=== PATIENT | female | born 1940 | race Caucasian/White ===

== ENCOUNTER 2018-01-08 11:21 | Outpatient (CLI) ==
--- NOTE | 2018-01-08 12:30 | DI ---
EXAM: LEFT SHOULDER HISTORY: Shoulder pain FINDINGS: Left shoulder three-view. The general bone density appears normal. Glenohumeral joint is within normal limits. There is mild AC joint osteoarthritis. There is mild elevation of the distal clavicle relative to the acromion process although similar in degree to that seen on 06/15/2009 chest radiography. IMPRESSION: Mild acromioclavicular joint osteoarthritis. Subtle AC joint separation may be present. Findings appear stable since 2010.
== END 2018-01-08 11:22 | disposition home or self-care (01) ==
LOC: RAD 11:21
PROVIDERS: ATTEND Family Medicine
DX: M25.512 Pain in left shoulder (principal)

== ENCOUNTER 2018-01-31 09:00 | Outpatient (RCR) ==
--- NOTE | 2018-01-29 11:19 | RS.OPPTEV2 ---
Date of Note: 01/28/18 Visit #: 1 Date of Evaluation: 01/28/18 Payer Source: MEDICARE Surgery Performed?: No Treatment Diagnosis: neck pain, OA of spine History of Condition/Mechanism of Injury:: pt reports has had cervical pain since 01/07/18. pt was caring for at home, just recently was placed in skilled nursing. pt reports she was having to lift as well as pusing w/c up ramp. Prior Level of Function.....Patient was independent with: ADL's, Self Care, Caregiving, Ambulation/Mobility, Community Integration/Access Functional Limitations: Sleep, Self Care, Pushing, Pulling, Lifting, Carrying, Community Access/Integration Current Subjective/complaints:: pt reports she is currently having no pain in cervical spine. States she has occasional numbness and tingling in B hands. L worse than R. Treatment Side (optional): N/A *Precautions: n/a Medical History Medical History: Hypertension, Diabetes, Arthritis Medical History Comments:: anxiety, depression, hyperlipidemia, Chronic kidney disease, osteopenia Surgical History: Lumbar Spine, Hysterectomy Smoking Status: Former smoker Hx Home Medications: aspirin, enalapril, fluoxetine, furosemide, glipizide, Patient's Goals: no further pain Pain Assessment - Pain Description Pain Location: cervical pain Current Pain Intensity: 0 Other Comments regarding Pain:: pt currently without pain, just "feels tight" Functional Outcome Measure Neck Disability Index: 4 (8%) - G Codes & Severity Modifier G Codes & Modifier: carrying moving and handling current CI. carrying moving and handling goal CH Source of G Code score: neck disability index Observation - Observation Inspection: muscle tightness B upper trap R worse that L. Posture: Forward Head, Rounded Shoulders, Decreased Lumbar Lordosis, Decreased Cervical Lordosis Handedness: Right Gait - Gait Pattern General Gait Pattern Observation: No Deviations/Normal General Range of Motion: BUE and BLE WFL's Muscle Strength: BUE 4+/5. BLE 5/5 - ROM Cervical Spine Range of Motion Limitations: Soft Tissue Tightness, Muscle Weakness Comments: cervical ROM WFL's with slight discomfort with lat side bending - Strength Cervical Extension: 3+ Fair+ Cervical Flexion: 3+ Fair+ Cervical Lateral Flexion: 3 Fair Trunk Extension: 3 Fair - Special Tests Foraminal Distraction: Negative (pt reports that cervical distraction felt good , like it was stretching muscles.) Foraminal Compression: Negative Left, Negative Right Palpation Palpation Findings: Tenderness, Trigger Point, Muscle Guarding Comments:: trigger points noted in B upper traps R worse than L. Sensation - Sensation Right Upper Extremity: Impaired Left Upper Extremity: Impaired Right Lower Extremity: Intact/Normal Left Lower Extremity: Intact/Normal Comments: pt reports occasional n/t B hands. Balance - Sitting Balance Static Sitting Balance: Normal Dynamic Sitting Balance: Normal - Standing Balance Static Standing Balance: Normal Dynamic Standing Balance: Normal - Heat/Cryotherapy Treatment: Hot Pack Comments:: cervical spine Interventions - Exercise/Activities/Manual Therapy Exercises/Activities: pt performed cervical retraction, gentle upper trap stretch B, corner stretch, scapular retraction x 5 reps each. Manual Therapy: NA HOME EXERCISE PROGRAM: pt given written HEP including scapular retaction, cervical retraction, corner stretch, upper trap stretch - Charges Timed Code Treatment Minutes: 51 Total Treatment Time: 62 Procedures billed for this date of service:: eval med, HP EVALUATION COMPLEXITY LEVEL EVALUATION COMPLEXITY LEVEL: HISTORY: Medium (HTN, DM, OA, ), EXAM OF BODY SYSTEMS: Medium (strength, muscle tightness, trigger points), CLINICAL PRESENTATION: Medium, CLINICAL DECISION MAKING: Medium Assessment Assessment: pt presents with muscle tightness in B Upper trap and levator, also with trigger points noted in B upper traps R worse than L. pt with occasional n/ t B hands. Patient Education: Home Exercise Program, Education of Plan of Care Short Term Goals Goal #1: pt independent with initial HEP Goal to be met by: 02/11/18 Goal #2: pt with decreased muscle tightness R upper trap equal to L Goal to be met by: 02/11/18 Goal #3: pt with no reports of pain in cervical spine Goal to be met by: 02/11/18 Goal #4: pt with decreased radicular symptoms in UEs Goal to be met by: 02/11/18 Detention Goals Goal #1: pt with normal upper trap and levator flexibility Goal to be met by: 02/18/18 Goal #2: pt with no reports of pain with activity in cervical spine Goal to be met by: 02/18/18 Goal #3: 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 Plan - Treatment to be Provided Procedures: Therapeutic Exercises, Manual Therapy, Massage, Patient Education Modalities: Electrical Stimulation, Ultrasound/Phonophoresis, Cryotherapy, Hot Packs, Mechanical Traction - Treatment Plan Frequency: 2 X week Duration: 3 weeks ORDER # VISITS AND/OR THROUGH DATE: 02/18/18 - Treatment Code (1) Cervical pain Code(s): M54.2 - CERVICALGIA (2) Muscle tightness Code(s): M62.89 - OTHER SPECIFIED DISORDERS OF MUSCLE
--- NOTE | 2018-01-31 10:13 | RS.OPPTDN ---
Subjective Date of Note: 01/31/18 Visit #: 2 Date of Evaluation: 01/28/18 Payer Source: MEDICARE ( is secondary) Treatment Diagnosis: neck pain, OA of spine Current Subjective/complaints:: pt states she continues with no neck pain. pt reports she has been doing HEP. States having trouble finding a corner in her home to do corner stretch. (demonstrated way to stretch in smaller doorway). pt also reports that when pushing in w/c at ns home she tried to stay closer to chair and improve posture to decrease strain on neck. *Precautions: n/a Pain Assessment - Pain Description Other Comments regarding Pain:: no reports of pain, only tightness - Treatment Modality: Ultrasound Parameters/Method Applied: 1.5w/cm2 continuous x 7mins Treatment Area: L upper trap Patient Position: Sitting - Heat/Cryotherapy Treatment: Hot Pack Comments:: cervical spine Interventions - Exercise/Activities/Manual Therapy Exercises/Activities: pt performed cervical retraction, gentle upper trap stretch and levator stretch bilaterally, corner stretch, scapular retraction 2 sets of 10 with green tband. Manual cervical traction, trigger point release Total minutes of Exercise: 28 Manual Therapy: NA HOME EXERCISE PROGRAM: pt given written HEP including scapular retaction, cervical retraction, corner stretch, upper trap stretch - Objective Findings Observations,measurements,etc.: pt L upper trap with increased tightness and trigger point > R. - Charges Timed Code Treatment Minutes: 41 Total Treatment Time: 58 Procedures billed for this date of service:: exercise 2, ultrasound, hot pack Assessment: pt presents with decreased muscle tightness and no reports of pain. pt with continued tightness in B upper trap. Modified HEP and added scapular retraction with green theraband. Patient Education: Home Exercise Program, Education of Plan of Care Patient demonstrates compliance with HEP?: Yes Short Term Goals Goal #1: pt independent with initial HEP Goal to be met by: 02/11/18 Progress towards Goal:: Progressing Goal #2: pt with decreased muscle tightness R upper trap equal to L Goal to be met by: 02/11/18 Progress towards Goal:: Progressing Goal #3: pt with no reports of pain in cervical spine Goal to be met by: 02/11/18 Progress towards Goal:: Met Goal #4: pt with decreased radicular symptoms in UEs Goal to be met by: 02/11/18 Progress towards Goal:: Met Longterm Goals Goal #1: pt with normal upper trap and levator flexibility Goal to be met by: 02/18/18 Progress towards goal: Progressing Goal #2: pt with no reports of pain with activity in cervical spine Goal to be met by: 02/18/18 Progress towards goal: Progressing Goal #3: 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 Plan PLAN OF CARE EXPIRES ON:: 02/18/18 ORDER # VISITS AND/OR THROUGH DATE: 02/18/18 PLAN: Plan to dc next visit if no increased symptoms and pt independent with HEP.
== END 2018-01-31 23:59 | disposition short-term general hospital (02) ==
PROVIDERS: ATTEND Family Medicine
DX: M54.2 Cervicalgia (principal); M47.9 Spondylosis, unspecified; M62.89 Other specified disorders of muscle

== ENCOUNTER 2018-02-04 09:59 | Outpatient (RCR) | payer OTHER ==
--- NOTE | 2018-02-04 10:21 | RS.OPPTDN ---
Subjective Date of Note: 02/04/18 Visit #: 3 Date of Evaluation: 01/28/18 Payer Source: MEDICARE ( is secondary) Treatment Diagnosis: neck pain, OA of spine Current Subjective/complaints:: pt states she took her out of group home on Saturday and out to lunch and to their house and is hurting today. *Precautions: n/a Pain Assessment - Pain Description Pain Location: L medial scapula Pain Description: Sharp, Aching Current Pain Intensity: 6 Worst Pain Intensity: 8 - Treatment Modality: Ultrasound Parameters/Method Applied: 1.5w/cm2 x 8 mins continuous Treatment Area: L medial border of scapula Patient Position: Sitting - Heat/Cryotherapy Treatment: Hot Pack Comments:: L scapula Interventions - Exercise/Activities/Manual Therapy Exercises/Activities: pt performed cervical retraction, upper trap and levator scapula stretch. pt also performed corner stretch, wall angels, scapular retraction with elbows flexed and elbows extended 2 sets of 10 reps pt requires verbal and tactile cues to direct ex. Total minutes of Exercise: 21 Manual Therapy: pt received trigger point release as well as massage to L medial scapula and B upper traps. Total minutes of Manual Therapy: 17 HOME EXERCISE PROGRAM: pt given written HEP including scapular retaction, cervical retraction, corner stretch, upper trap stretch - Charges Timed Code Treatment Minutes: 46 Total Treatment Time: 61 Procedures billed for this date of service:: ex, manual tx, ultrasound, HP Assessment: pt with increased pain this visit due to lifting, pulling on over the weekend. Discussed proper body mechanics with patient to avoid further injury as well as letting her children assist when home and staff assist while at group home. pt verbalizes understanding Patient Education: Home Exercise Program, Activity Modification, Education of Plan of Care Patient demonstrates compliance with HEP?: Yes Short Term Goals Goal #1: pt independent with initial HEP Goal to be met by: 02/11/18 Progress towards Goal:: Progressing Goal #2: pt with decreased muscle tightness R upper trap equal to L Goal to be met by: 02/11/18 Progress towards Goal:: Met Goal #3: pt with no reports of pain in cervical spine Goal to be met by: 02/11/18 Progress towards Goal:: Met Goal #4: pt with decreased radicular symptoms in UEs Goal to be met by: 02/11/18 Progress towards Goal:: Met [employer] Goals Goal #1: pt with normal upper trap and levator flexibility Goal to be met by: 02/18/18 Progress towards goal: Progressing Goal #2: pt with no reports of pain with activity in cervical spine Goal to be met by: 02/18/18 Progress towards goal: Progressing Goal #3: 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 Plan PLAN OF CARE EXPIRES ON:: 02/18/18 ORDER # VISITS AND/OR THROUGH DATE: 02/18/18 PLAN: continue to focus on strengthening, stretching as well as modalities for pain control.
--- NOTE | 2018-02-12 13:41 | RS.OPPTDC ---
Date of Discharge: 02/04/18 Date of Evaluation: 01/28/18 Number of Visits: 3 Treatment Diagnosis: neck pain, OA of spine Current Level of Function: pt with increased pain this visit 11/10. Reports happened after taking out of intermediate for visit. pt with ROM WFL's, trigger points noted in upper traps, and medial border of scapula. Current Complaints/Gains: pt reports increased pain related to caring for . pt continues to perform home exercises. She feels she is ready for DC because she only has pain when trying to pull and lift . Discussed safety and body mechanics and pt verbalized understanding. Pain Assessment - Pain Description Pain Location: medial scapula and upper trap Pain Description: Aching Current Pain Intensity: 6 Functional Outcome Measure Neck Disability Index: 4 - G Codes & Severity Modifier G Codes & Modifier: carrying moving and handling dc CI. carrying moving and handling goal CH Source of G Code score: neck disability index Observation - Observation Posture: Forward Head, Rounded Shoulders, Increased Thoracic Kyphosis Handedness: Right Gait - Gait Pattern General Gait Pattern Observation: No Deviations/Normal General Range of Motion: WFL's BUE and BLE Muscle Strength: BUE and LE WFL's Interventions - Exercise/Activities/Manual Therapy Exercises/Activities: n/a Manual Therapy: n/a HOME EXERCISE PROGRAM: pt given written HEP including scapular retaction, cervical retraction, corner stretch, upper trap stretch - Charges Timed Code Treatment Minutes: n/a Total Treatment Time: n/a Procedures billed for this date of service:: n/a Assessment Assessment: pt has met all STG's and progressing toward LTG's. pt has had increased in pain for last visit due to caring for . Patient Education: Home Exercise Program, Education of Plan of Care Rehab Potential: Good Short Term Goals Goal #1: pt independent with initial HEP Goal to be met by: 02/11/18 Progress towards Goal:: Met Goal #2: pt with decreased muscle tightness R upper trap equal to L Goal to be met by: 02/11/18 Progress towards Goal:: Met Goal #3: pt with no reports of pain in cervical spine Goal to be met by: 02/11/18 Progress towards Goal:: Met Goal #4: pt with decreased radicular symptoms in UEs Goal to be met by: 02/11/18 Progress towards Goal:: Met [employer] Goals Goal #1: pt with normal upper trap and levator flexibility Goal to be met by: 02/18/18 Progress towards goal: Progressing Goal #2: pt with no reports of pain with activity in cervical spine Goal to be met by: 02/18/18 Progress towards goal: Progressing Goal #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 Plan Reason for Discharge:: pt request
== END 2018-03-02 23:59 ==
PROVIDERS: ATTEND Family Medicine
DX: M54.2 Cervicalgia (principal); M47.9 Spondylosis, unspecified

== ENCOUNTER 2018-03-25 17:25 | Outpatient (CLI) | payer OTHER ==
--- NOTE | 2018-03-26 07:58 | DI ---
EXAM: Chest two views HISTORY: Cough COMPARISON: 08/03/2012 TECHNIQUE: Two views of the chest were performed FINDINGS: Mild left basilar atelectasis and/or infiltrate. There is no pleural effusion or pneumoth orax. The heart is normal in size. The mediastinal contour is normal. There are no acute abnormali ties of the bones. IMPRESSION: Mild left basilar atelectasis and/or pneumonia.
== END 2018-03-25 17:26 | disposition home or self-care (01) ==
LOC: RAD 17:25
PROVIDERS: ATTEND Family Medicine
DX: R05 Cough (principal); J32.9 Chronic sinusitis, unspecified

== ENCOUNTER 2018-10-21 11:24 | Emergency (ER) | payer OTHER ==
[2018-10-21 11:51] VITALS: BMI 25.8
--- NOTE | 2018-10-21 12:07 | ED.PDOC ---
General ED Provider: Dr. JOSEPH WANG Chief Complaint: Fall Stated Complaint: Fell last evening and sustained low back and hip injury. Pain and discomfort in low back and rt posterior rib cage. Patient states she was trying to get into bed. Last evening patient felt weak and confused, She lost her balance and fell away from bed. Patient felll agaist frame and fell but sas able to get herself up. Complains of low back and rib pain which started last night after the fall and pt had a hard time sleeping. describes pain as a sore feeling. pt is confused and unsure if or when she had eaten over the past few days. pt became confused since the fall. Cough- Son states she has been under care of ENT specialist for a chronic cough but has not cleared up . States has persistent cough since last March but imaging has been negative. Son states she has complained of weakness and seems confused, at times not being able to speak the words she is thinking and wants to use. No prev stroke Time Seen by Physician: 11:50 Mode of Arrival: Walk-In Information Source: Patient Exam Limitations: No limitations Primary Care Provider: KASH ARCOS Nursing and Triage Documentation Reviewed and Agree: Yes Does patient meet sepsis criteria?: No If yes, has appropriate treatment been initiated?: No System Inflammatory Response Syndrome: Not Applicable Sepsis Protocol: For patient's 13 years and over: Temp is 96.8 and below OR 101 and greater Pulse >90 BPM Resp >20/minute Acutely Altered Mental Status Are patient's symptoms suggestive of a new infection, such as: -Pneumonia -Skin, Soft Tissue -Endocarditis -UTI -Bone, Joint Infection -Implantable Device -Acute Abdominal Infection -Wound Infection -Meningitis -Blood Stream Catheter Infection -Unknown Musculoskeletal Complaint Exam - Back Pain Complaint/Exam Mechanism of Injury: Reports: Trauma Onset/Duration: 24 hrs Symptoms Are: Still present Timing: Intermittent Episodes Lasting: Minutes Initial Severity: Moderate Current Severity: Moderate Location: Reports: Diffuse Character: Reports: Sharp, Aching Aggravating: Reports: Movements, Bending, Cough Alleviating: Reports: None Associated Signs and Symptoms: Denies: Swelling, Redness, Bruising, Fever, Weakness, Numbness, Tingling, Abdominal pain, Flank pain, Bladder incontinence, Bowel incontinence, Weight loss, Pain with weight bearing TAD Risk Factors: Reports: None AAA Risk Factors: Reports: None Cauda Equina Risk Factors: Reports: None Epidural Abcess Risk Factors: Reports: None Related Surgical History: Reports: None Focal Tenderness: Yes Paraspinal Muscle Tenderness: No Paraspinal Muscle Spasm: No Scoliosis: No Lordosis: No Kyphosis: No SLR Test: Right Negative, Left Negative Hip Motion Testing Pain: Right Negative, Left Negative Focal Weakness: Present: None Focal Sensory Loss: Present: None Gait: Present: Unsteady Differential Diagnoses: Fracture, Strain Review of Systems - Review Of Systems Constitutional: Reports: Fever, Weakness Eyes: Reports: No symptoms Ears, Nose, Mouth, Throat: Reports: No symptoms Respiratory: Reports: Cough, Short of air Cardiac: Reports: Edema. Denies: Chest pain, Irregular heart rate, Lightheadedness, Palpitations, Syncope GI: Reports: No symptoms : Reports: No symptoms Musculoskeletal: Reports: Back pain, Joint pain Skin: Reports: No symptoms Neurological: Reports: Cognitive dysfunction, Weakness Endocrine: Reports: No symptoms Hematologic/Lymphatic: Reports: No symptoms All Other Systems: Reviewed and Negative Past Medical History - Past Medical History Previously Healthy: No Endocrine: Reports: DM 2, Dyslipidemia Cardiovascular: Reports: Hypertension Respiratory: Reports: Unknown Hematological: Reports: Anemia Gastrointestinal: Reports: None Genitourinary: Reports: None Neuro/Psych: Reports: None, Dementia Musculoskeletal: Reports: Back Pain Cancer: Reports: None Last Menstrual Period: n/a - Surgical History General Surgical History: Reports: Unknown - Family History Family History: Reports: None - Social History Smoking Status: Former smoker Hx Substance Use: No Alcohol Screening: None - Immunizations Tetanus Shot up to Date: Yes Physical Exam - Physical Exam Appearance: Ill-appearing Ill-appearing: Mild Pain Distress: Moderate Eyes: JAISON, EOMI, Conjunctiva clear ENT: Ears normal, Nose normal, Oropharynx normal Neck: Supple Respiratory: Breath sounds diminished, Wheezes Cardiovascular: RRR, Pulses normal, No rub, No murmur GI/: Soft, Nontender, No masses, Bowel sounds normal, No Organomegaly Musculoskeletal: Normal strength, No edema, No calf tenderness Skin: Warm, Dry, Normal color Neurological: Sensation intact, Motor intact, Reflexes intact, Cranial nerves intact, Alert, Oriented, Disoriented (MILDLY CONFUSED) Psychiatric: Mood appropriate, Anxious Physician Notification - Case Discussed Physician Notified: DR ARCOS-CALLED TO DISCUSS/STAFF ADVISED W/A PT/WILL CALL BACK Time of Notification: 16:45 (NO CALL BACK-CAME TO SEE PT) Time of Discussion: 17:25 (DR JOSSELYN TRAYLOR TRANSFER TO [facility]) Admit/Transition Orders Entered by ED Provider: Yes Reviewed With: ACCEPTING PHYSICIAN Admit To: Inpatient Critical Care Note - Critical Care Note Total Time (mins): 60 Course - Course Hematology/Chemistry: 10/21/18 12:15 10/21/18 12:15 Orders, Labs, Meds: Lab Review 10/21/18 10/21/18 10/21/18 11:24 12:15 12:15 WBC 16.26 H RBC 4.23 Hgb 13.0 Hct 37.8 MCV 89.4 MCH 30.7 MCHC 34.4 RDW Coeff of Destiny 12.0 Plt Count 255 Immature Gran % (Auto) 0.4 Neut % (Auto) 81.1 Lymph % (Auto) 8.5 L Baxter % (Auto) 9.6 Eos % (Auto) 0.1 Baso % (Auto) 0.3 Immature Gran # (Auto) 0.1 Neut # (Auto) 13.2 H Lymph # (Auto) 1.4 Baxter # (Auto) 1.6 Eos # (Auto) 0.0 Baso # (Auto) 0.1 Sodium 133.2 L Potassium 4.07 Chloride 94.7 L Carbon Dioxide 25.9 Anion Gap 16.67 BUN 16.7 Creatinine 0.88 Estimated GFR (MDRD) 62.00 BUN/Creatinine Ratio 18.97 Glucose 269.6 H Lactic Acid Calcium 9.29 Magnesium 1.65 Total Bilirubin 0.93 AST 18.7 ALT 12.4 Alkaline Phosphatase 84.9 Troponin I < 0.012 Total Protein 6.84 Albumin 4.10 Globulin 2.74 Albumin/Globulin Ratio 1.49 Urine Color Urine Clarity Urine pH Ur Specific Vanderwagen Urine Protein Urine Glucose (UA) Urine Ketones Urine Blood Urine Nitrite Urine Bilirubin Urine Urobilinogen Ur Leukocyte Esterase Urine Microscopic RBC Urine Microscopic WBC Ur Squamous Epith Cells Urine Bacteria Aerob & Anaerob Suscept Not Reportable Organism ID Comment H Bacterial ID Final report H Antimicrobial Suscept 10/21/18 10/21/18 12:55 18:32 WBC RBC Hgb Hct MCV MCH MCHC RDW Coeff of Destiny Plt Count Immature Gran % (Auto) Neut % (Auto) Lymph % (Auto) Baxter % (Auto) Eos % (Auto) Baso % (Auto) Immature Gran # (Auto) Neut # (Auto) Lymph # (Auto) Baxter # (Auto) Eos # (Auto) Baso # (Auto) Sodium Potassium Chloride Carbon Dioxide Anion Gap BUN Creatinine Estimated GFR (MDRD) BUN/Creatinine Ratio Glucose Lactic Acid 1.44 Calcium Magnesium Total Bilirubin AST ALT Alkaline Phosphatase Troponin I Total Protein Albumin Globulin Albumin/Globulin Ratio Urine Color Yellow Urine Clarity Clear Urine pH 6.0 Ur Specific Vanderwagen 1.025 Urine Protein 3+ Urine Glucose (UA) Trace Urine Ketones 2+ Urine Blood 1+ Urine Nitrite Negative Urine Bilirubin Negative Urine Urobilinogen 1.0 Ur Leukocyte Esterase 1+ Urine Microscopic RBC 5-10 Urine Microscopic WBC 20-30 Ur Squamous Epith Cells 5-10 Urine Bacteria Trace Aerob & Anaerob Suscept Organism ID Bacterial ID Antimicrobial Suscept Orders Category Date Time Status EKG-(ED ONLY) Stat CARDIO 10/21/18 12:06 Completed NEBULIZER TREATMENT Stat CARDIO 10/21/18 14:18 Completed ACCUCHECK (ED) [ED ACCUCHECK ASSESSMENT] .ONCE EMERGENCY 10/21/18 14:10 Active IV [ED IV/MEDIPORT/POWERPORT] .ONCE EMERGENCY 10/21/18 14:09 Active BLOOD CULTURE (ED ONLY) Stat LAB 10/21/18 18:31 Completed BLOOD CULTURE Stat LAB 10/21/18 18:58 Completed CBC W/ AUTO DIFF Stat LAB 10/21/18 12:15 Completed CMP [COMPREHENSIVE METABOLIC PANEL] Stat LAB 10/21/18 12:15 Completed LACTIC ACID Stat LAB 10/21/18 18:32 Completed MAGNESIUM Stat LAB 10/21/18 12:15 Completed SPUTUM CULTURE Stat LAB 10/21/18 18:31 Completed SUSCEPT, AER + ANAEROB Stat LAB 10/21/18 11:24 Completed TROPONIN I Stat LAB 10/21/18 12:15 Completed UA [URINALYSIS C & S IF INDICATED] Stat LAB 10/21/18 12:55 Completed URINE CULTURE Stat LAB 10/21/18 12:55 Completed 0.9 % Sodium Chloride [Saline Flush] MEDS 10/21/18 14:10 Discontinued 1 syr IVF PRN PRN Ceftriaxone Sodium [Rocephin] MEDS 10/21/18 15:41 Discontinued 1 gm .ROUTE .STK-MED ONE Ceftriaxone Sodium [Rocephin] 1 gm MEDS 10/21/18 15:31 Discontinued 0.9 % Sodium Chloride [Sodium Chloride] 50 ml IV ONCE Ipratropium/Albuterol Neb [Duoneb] MEDS 10/21/18 14:18 Discontinued 1 vial NEB ONCE STA Sodium Chloride 0.9% [Sodium Chloride] 1,000 ml MEDS 10/21/18 14:[address] CHEST W/O CONTRAST Stat RADS 10/21/18 12:[address] HEAD W/O CONTRAST Stat RADS 10/21/18 12:[address] LUMBAR SPINE W/O CONTRAST Stat RADS 10/21/18 12:[address] PELVIS W/O CONTRAST Stat RADS 10/21/18 12:04 Completed Medications Discontinued Medications Generic Name Dose Route Start Last Admin Trade Name Freq PRN Reason Stop Dose Admin Albuterol/Ipratropium 1 vial 10/21/18 14:18 10/21/18 14:30 Duoneb NEB 10/21/18 14:19 1 vial ONCE STA Administration Sodium Chloride 1,000 mls @ 1,000 mls/hr 10/21/18 14:14 10/21/18 14:43 Sodium Chloride IV 10/21/18 15:13 1,000 mls/hr BOLUS STA Administration Ceftriaxone Sodium 1 gm/ 50 mls @ 75 mls/hr 10/21/18 15:31 10/21/18 15:55 Sodium Chloride IV 10/21/18 16:10 75 mls/hr ONCE STA Administration Sodium Chloride 1 syr 10/21/18 14:10 Saline Flush IVF PRN PRN To flush IV Vital Signs: Temp Pulse Resp BP Pulse Ox 10/21/18 17:53 101.3 F H 116 H 20 141/84 H 91 L 10/21/18 13:10 99.9 F H 10/21/18 11:25 99.9 F H 102 H 20 170/78 H 93 L Departure - Departure Time of Disposition: 19:00 Disposition: HOME HEALTH SERVICE Discharge Problem: Bilateral pneumonia, Solitary lung nodule, Low back pain, Osteoarthritis, Adrenal nodule Instructions: Pneumonitis (ED), Pulmonary Nodules (ED), Back Pain (ED), Lower Back Exercises (ED) Condition: Stable Pt referred to PMD for follow-up: Yes (DR ARCOS) IPMP verified?: No Additional Instructions: DIRECT ADMIT TO [facility] TO DR MILAN SEVERINO Allergies/Adverse Reactions: Allergies No Known Allergies Allergy (Verified 10/21/18 11:46) Home Medications: Ambulatory Orders Aspirin [Aspirin EC] 81 mg PO DAILY 04/16/14 Furosemide [Lasix] 40 mg PO DAILY 04/16/14 Lovastatin 40 mg PO BEDTIME 04/16/14 Metformin HCl [Glucophage] 1,000 mg PO BID 04/16/14 Potassium Chloride [Klor-Con 10] 10 meq PO DAILY 04/16/14 Multivitamin 1 cap PO DAILY 04/19/14 Azelastine HCl [Astelin 0.1%] 1 spray NS BID 10/21/18 Fluoxetine HCl 20 mg PO DAILY 10/21/18 Fluticasone Furoate [Arnuity Ellipta] 2 spray IH DAILY 10/21/18 Glipizide 1.5 tab PO BID 10/21/18 Losartan Potassium [Cozaar] 50 mg PO DAILY 10/21/18 Montelukast Sodium [Singulair] 10 mg PO BEDTIME 10/21/18 Transfer Form Completed: Yes Disposition Discussed With: Patient, Family Respiratory Complaint Exam - Respiratory Complaint/Exam Onset/Duration: 4 weeks Symptoms Are: Still present Timing: Intermittent Initial Severity: Mild Current Severity: Moderate Location: Unknown Character: Reports: Productive cough, Bronchospastic cough Aggravating: Reports: Allergens, Passive smoke exposure Alleviating: Reports: None Associated Signs and Symptoms: Reports: Dyspnea, Dizziness Related History: Reports: Similar episode History of Healthcare-Acquired Pneumonia: No Related Surgical History: Reports: None Pulmonary Embolism Risk Factors: None Cardiac Risk Factors: Reports: None Pseudomonas Risk Factors: Reports: None Tuberculosis Risk Factors: Reports: None Status Asthmaticus Risk Factors: Reports: None Home Oxygen Use: No Current Antibiotic Use: No Respiratory Distress: None Stridor Present: No JVD Present: No Accessory Muscle Use: No Retractions: Not Present Diminished Breath Sounds: Yes Sinus Tenderness: None Grunting Respirations: No Kussmaul Respirations: No Differential Diagnoses: COPD Exacerbation, Pneumonia, Mycoplasma
--- NOTE | 2018-10-21 12:46 | CT ---
EXAM: CT of the lumbar spine without contrast History: Lower back trauma. Technique: Multiplanar CT images through the lumbar spine were obtained without the administration o f IV contrast Findings: 1.5 cm right adrenal nodule. No acute fracture or subluxation of the lumbar spine. Sclerotic lesions are seen within the sacrum a nd the spinous process at T11 and could represent bone islands. Moderate to severe disc space narrow ing at L3-L4, L4-L5 and L5-S1 with endplate sclerosis and osteophyte formation. There is mild to mod erate bony central canal stenosis at L3-L4 and L4-L5. Moderate left-sided bony neural foraminal narr owing at L3-L4, L4-L5 and L5-S1 secondary to facet hypertrophy. Impression: No acute osseous abnormality of the lumbar spine. Degenerative changes. Indeterminate right adrenal nodule. Recommend further evaluation with MRI adrenal mass protocol.
--- NOTE | 2018-10-21 12:48 | CT ---
EXAM: CT pelvis without contrast HISTORY: Fall, pain in hip and pelvis COMPARISON: None TECHNIQUE: CT pelvis performed without intravenous contrast. Coronal and sagittal reformatted image s obtained. FINDINGS: No fracture or dislocation. Mild osteoarthritis of the hips with mild bilateral joint spa ce narrowing. Sacroiliac joints intact. Small sclerotic focus in the sacrum and right femur, likely bone island. Degenerative change in the spine. Mild degenerative change about the pubic symphysis. Status post hysterectomy. IMPRESSION: 1. No fracture or dislocation. 2. Mild osteoarthritis of the hips.
--- NOTE | 2018-10-21 13:51 | CT ---
EXAM: CT Head HISTORY: Fell, dizzy, confusion COMPARISON: None TECHNIQUE: CT head performed without contrast FINDINGS: There is no mass effect, midline shift, or intracranial hemmorhage. Roman white differenti ation is preserved. There is no extra-axial collection. The ventricles, sulci, and basal cisterns a re patent and symmetric. There is chronic ischemic disease of the white matter and cerebral volume l oss. There is no depressed calvarial fracture. Small bilateral mastoid effusions. The visualized pa ranasal sinuses are clear. There are intracranial atherosclerotic calcifications. IMPRESSION: 1. No acute intracranial abnormality. 2. Chronic ischemic disease of the white matter and cerebral volume loss. 3. Small bilateral mastoid effusions.
--- NOTE | 2018-10-21 14:04 | CT ---
EXAM: CT of the chest without contrast History: Cough and chest trauma. Technique: Multiplanar CT images through the thorax were obtained without the administration of IV c ontrast. Findings: Heart size is normal. No pericardial effusion. No thoracic aortic aneurysm. No axillary lymphadenopathy. No pathologically enlarged mediastinal lymph nodes. Evaluation for hilar lymph no cat is limited due to the lack of contrast administration. Nodular bilateral areas of consolidation. 2.2 cm spiculated mass within the right upper lobe. Trace right pleural effusion. No pneumothorax . Within the visualized upper abdomen, motion artifact limits evaluation. Mild nodular thickening of t he bilateral adrenal glands. No acute osseous abnormalities. Impression: 1. Bilateral pneumonia. 2. Spiculated mass within the right upper lobe is suspicious for malignancy. Biopsy will probably b e needed. 3. Mild nodular thickening of the bilateral adrenal glands could be benign or metastatic. Recommend further evaluation with MRI adrenal mass protocol.
[2018-10-21] MEDS ORDERED: SODIUM CHLORIDE 1,000 ML IV STA (14:14)
[2018-10-21] MEDS ORDERED: DUONEB NEB STA (14:18)
[2018-10-21] MEDS ORDERED: ROCEPHIN 1 GM in SODIUM CHLORIDE 50 ML IV STA (15:31)
[2018-10-21] MEDS ORDERED: ROCEPHIN ONE (15:41)
[2018-10-21 17:55] VITALS: BP 141/84; TEMP 101.3
== END 2018-10-21 19:34 | disposition home health service (06) ==
LOC: ED 11:24
DX: J18.9 Pneumonia, unspecified organism (principal); M54.5 Low back pain; S79.919A Unspecified injury of unspecified hip, initial encounter; R91.1 Solitary pulmonary nodule; E27.9 Disorder of adrenal gland, unspecified; W19.XXXA Unspecified fall, initial encounter; R53.1 Weakness; R41.0 Disorientation, unspecified; R06.02 Shortness of breath; M19.90 Unspecified osteoarthritis, unspecified site; E11.9 Type 2 diabetes mellitus without complications; E78.5 Hyperlipidemia, unspecified; I10 Essential (primary) hypertension; Z79.899 Other long term (current) drug therapy
CPT/HCPCS: 36415; 80053; 81001; 82962; 83605; 83735; 84484; 85025; 87040; 87070; 87077; 87086; 87186; 93005; 93010; 94640; 96361; 96365; 99285